=== PATIENT | female | born 1985 | race Caucasian/White ===

== ENCOUNTER 2017-07-12 09:31 | Inpatient (IN) ==
[2017-07-12] MEDS ORDERED: PEPCID PO ONE (09:40)
[2017-07-12] MEDS ORDERED: REGLAN PO ONE (09:40)
[2017-07-12] MEDS ORDERED: LR 1,000 ML IV SCH (09:44)
[2017-07-12] MEDS ORDERED: CLINDAMYCIN 900 MG/NS 900 MG/50 ML IVPB IV ONE (09:46)
[2017-07-12] MEDS ORDERED: LR 2,000 ML ONE (09:46)
[2017-07-12] MEDS ORDERED: BICITRA PO ONE (10:00)
[2017-07-12 10:17] LABS: MANUAL DIFF NEEDED? NO
[2017-07-12 10:17] LABS: URINE SOURCE VOIDED
[2017-07-12] MEDS ORDERED: HYDROXYZINE IM PRN (10:19)
[2017-07-12] MEDS ORDERED: HYDROXYZINE PO PRN (10:19)
[2017-07-12] MEDS ORDERED: AMBIEN PO PRN (10:19)
[2017-07-12] MEDS ORDERED: DULCOLAX PR PRN (10:19)
[2017-07-12] MEDS ORDERED: M-M-R II VACCINE SUBQ ONE (10:19)
[2017-07-12] MEDS ORDERED: PITOCIN 20 UNITS/LR 20 UNITS/1,000 ML IV.SOLN IV ONE (10:19)
[2017-07-12] MEDS ORDERED: PITOCIN IM PRN (10:19)
[2017-07-12] MEDS ORDERED: BOOSTRIX VACCINE IM ONE (10:19)
[2017-07-12] MEDS ORDERED: DEMEROL PO PRN ×2 (10:19)
[2017-07-12] MEDS ORDERED: DEMEROL IM PRN (10:19)
[2017-07-12] MEDS ORDERED: PERCOCET-5 PO PRN (10:19)
[2017-07-12] MEDS ORDERED: CYTOTEC PO PRN (10:19)
[2017-07-12] MEDS ORDERED: PHENERGAN IM PRN (10:19)
[2017-07-12 10:21] LABS: BASO% 0.1 % (0.0-0.8); EOS# 0.13 X1000 (0.0-0.7); EOS% 1.8 % (0.0-10.0); HEMATOCRIT 32.1 % (37.0-47.0); HEMOGLOBIN 10.8 g/dL (12.0-16.0); IMM GRAN# 0.01 X1000 (0.0-0.04); IMM GRAN% 0.1 % (0.0-0.5); LYMPH# 1.77 X1000 (1.2-3.4); LYMPH% 23.9 % (20.5-51.1); MCHC 33.6 g/dL (33-37); MCV 83.2 FL (81-99); MONO# 0.61 X1000 (0.11-0.59); MONO% 8.2 % (1.7-9.3); MPV 13.3 FL (7.4-10.4); NEUT% 65.9 % (42.2-75.2); PLT 137 X1000 (130-400); RBC 3.86 XMIL (4.2-5.4)
[2017-07-12] MEDS ORDERED: PEPCID IV ONE (10:30)
[2017-07-12] MEDS ORDERED: PITOCIN 10 UNITS/LR 10 UNIT/1,000 ML IV.SOLN IV SCH (10:30)
[2017-07-12 10:31] LABS: BILIRUBIN URINE NEGATIVE (NEGATIVE); BLOOD URINE NEGATIVE (NEGATIVE); CLARITY CLEAR (CLEAR); COLOR YELLOW; GLUCOSE URINE NEGATIVE (NEGATIVE); LEUKOCYTES URINE 2+ (NEGATIVE); NITRITE URINE NEGATIVE (NEGATIVE); PROTEIN URINE TRACE mg/dL (NEGATIVE); SP GRAVITY URINE 1.005; UROBILINOGEN URINE NORMAL
--- NOTE | 2017-07-12 10:34 | HISTORY AND PHYSICAL ---
HISTORY OF PRESENT ILLNESS: The patient is a 32-year-old female 7, para 3-0-1-3 who is admitted at this time for a for delivery. Her has been complicated by twins. She is approximately 36 weeks , came in today in the office with a breech/vertex presentation, and she on exam is 5 cm dilated. Because of this, she is admitted at this time for a for delivery. PAST MEDICAL HISTORY: x3. MEDICINES: vitamins. ALLERGIES: Cephalosporins. PHYSICAL EXAMINATION: GENERAL: Well-developed female. HEENT: Benign. NECK: Supple. LUNGS: Clear. CARDIOVASCULAR: Regular rate and rhythm. ABDOMEN: Soft, nontender. EXTREMITIES: Without clubbing, cyanosis, or edema. ASSESSMENT AND PLAN: A 32-year-old in with 36-week twins, breech/vertex, labor, admitted at this time for a primary section for delivery. cc: Raul Chand MD
[2017-07-12] MEDS ORDERED: DURAMORPH ONE (11:24)
[2017-07-12] MEDS ORDERED: ROBINUL ONE (11:49)
[2017-07-12] MEDS ORDERED: PITOCIN ONE (11:50)
[2017-07-12] MEDS ORDERED: ZOFRAN ONE (12:34)
[2017-07-12] MEDS ORDERED: TORADOL ONE (12:36)
--- NOTE | 2017-07-12 13:06 | OPERATIVE NOTE ---
PROCEDURE DATE : 07/12/2017 SURGEON: Dr. Chand PREOPERATIVE DIAGNOSIS: 36 week intrauterine twins, labor, breech and breech presentation. POSTOPERATIVE DIAGNOSIS: 36 week intrauterine twins, labor, breech and breech presentation. PROCEDURE PERFORMED: Primary low transverse section. ANESTHESIA: Spinal. FINDINGS: The patient had twin , both breech presentation, with kehinde breech deliveries. Baby A was a male and weighed 5 pounds 6 ounces, Apgars were 8 and 9. Baby B was a male and weighed 5 pounds 15 ounces, Apgars were 8 and 9. DESCRIPTION OF PROCEDURE: The patient was taken to the operating room and underwent spinal anesthesia, was given Cleocin IV. She was prepped and draped in sterile fashion. Bach catheter was inserted in the bladder. Pump hose and stockings were placed. We made a Pfannenstiel skin incision and sharply dissected down to the fascia. The fascia was dissected off the rectus muscle. Peritoneum was entered and dissected down to create the bladder flap. A low transverse incision was made. Clear fluid was noted upon entering the amniotic sac of baby A. Using fundal pressure, the baby delivered in kehinde breech presentation, easily delivered. Cord blood was obtained. We had artificial rupture of membranes of baby B, and this baby too came out as a breech presentation, buttocks and feet, and the infant was delivered just using fundal pressure. Cord blood was obtained on this baby. The placentas were tagged, removed and sent to pathology for identification. The uterus was cleaned with a clean lap. The incision was closed with #1 chromic in interlocking fashion. Good hemostasis was noted throughout. The uterus was put back in its anatomic position. Irrigation was done. The rectus muscle was closed with 0 chromic suture. Hemostasis was maintained with a Bovie. Fascia was closed with #1 Vicryl. Then 3-0 Vicryl was used subcuticularly, and the skin was closed with 4-0 Biosyn. Estimated blood loss was 500 mL. Mother and infants are doing well. cc: Raul Chand MD
[2017-07-12] MEDS ORDERED: NARCAN INJ PRN (15:55)
[2017-07-12] MEDS ORDERED: ZOFRAN ODT PO PRN (15:55)
[2017-07-12] MEDS ORDERED: MORPHINE IV PRN (15:55)
[2017-07-12] MEDS ORDERED: BENADRYL IV PRN (15:55)
[2017-07-12] MEDS ORDERED: ZOFRAN IV PRN ×2 (15:55)
[2017-07-12] MEDS: TORADOL IV PRN (18:40)
[2017-07-12] MEDS: PERICOLACE PO SCH (21:16)
[2017-07-12] MEDS: MYLICON PO SCH (21:16)
[2017-07-13] MEDS: TORADOL IV PRN ×2 (01:07→07:49)
[2017-07-13] MEDS: MYLICON PO SCH ×4 (06:14→17:57)
[2017-07-13 06:45] LABS: HEMATOCRIT 27.5 % (37.0-47.0); HEMOGLOBIN 8.9 g/dL (12.0-16.0); MCH 27.7 PG (27-31); MCHC 32.4 g/dL (33-37); MCV 85.7 FL (81-99); MPV 13.3 FL (7.4-10.4); RBC 3.21 XMIL (4.2-5.4)
[2017-07-13] MEDS: PERCOCET-10 PO PRN ×4 (08:49→23:03)
[2017-07-13] MEDS: MYLICON PO PRN ×3 (10:16→21:50)
[2017-07-13] MEDS ORDERED: LR 1,000 ML IV SCH (10:19)
[2017-07-13] MEDS: ADALAT CC PO SCH (16:31)
[2017-07-13] MEDS: MOTRIN PO PRN (17:55)
[2017-07-13] MEDS: PERICOLACE PO SCH (21:50)
[2017-07-14] MEDS: PERCOCET-10 PO PRN ×4 (07:22→20:42)
[2017-07-14] MEDS: MOTRIN PO PRN ×2 (07:23→15:30)
[2017-07-14] MEDS: ADALAT CC PO SCH (08:47)
[2017-07-14] MEDS: MYLICON PO SCH ×6 (08:47→20:42)
[2017-07-14] MEDS: PERICOLACE PO SCH (20:42)
[2017-07-15] MEDS: MOTRIN PO PRN ×3 (00:05→16:06)
[2017-07-15] MEDS: PERCOCET-10 PO PRN ×5 (00:07→20:30)
[2017-07-15] MEDS: TRANDATE PO SCH ×2 (09:00→20:30)
[2017-07-15] MEDS: MYLICON PO SCH ×4 (09:01→20:30)
[2017-07-15] MEDS: PERICOLACE PO SCH (20:30)
[2017-07-16] MEDS: MOTRIN PO PRN ×2 (00:13→09:03)
[2017-07-16] MEDS: PERCOCET-10 PO PRN ×3 (00:14→09:02)
[2017-07-16] MEDS: MYLICON PO SCH (09:02)
[2017-07-16] MEDS: TRANDATE PO SCH (09:03)
[2017-07-16 09:49] VITALS: BP 158/84
--- NOTE | 2017-07-16 16:21 | DISCHARGE SUMMARY ---
ADMISSION DATE: 07/12/2017 DISCHARGE DATE: 07/16/2017 ADMITTING DIAGNOSES: 1. Intrauterine at 36 weeks, twin gestation, for the delivery at 5 cm. 2. Hypertension. DISCHARGE DIAGNOSES: 1. Intrauterine at 36 weeks, twin gestation, for the delivery at 5 cm. 2. Hypertension. CONDITION: Stable. DIET: As tolerated. ACTIVITY: Routine . MEDICATIONS: OxyContin 5 mg, #30, for pain. FOLLOWUP: Follow up in 1 week at the office. Continue vitamins, iron and blood pressure medications. PHYSICAL EXAMINATION: General: Ms. Small has had no complaints. She states tolerating p.o., ambulating, voiding, desiring discharge. Vital Signs: Stable. She is afebrile. Diastolics mostly in the 80's. Neck: Supple. Lungs: Clear. Heart: Regular sinus rhythm. Abdomen: Distended. Incision is dry and intact. The uterus is firm. Extremities: There is +2 lower extremity edema. DISPOSITION: We will discharge her with above instructions. cc: MD Raul Schwartz MD
== END 2017-07-16 13:50 | disposition home or self-care (01) ==
LOC: P.LD 09:31
PROVIDERS: ADMIT Obstetrics & Gynecology; ATTEND Obstetrics & Gynecology